=== PATIENT | male | born 1985 | race Caucasian/White ===

== ENCOUNTER 2019-06-22 12:35 | Emergency (ER) | payer MEDICAID ==
[~2019-06-22] VITALS: Ht 170.2 cm; Wt 78.0 kg
[2019-06-22] MEDS ORDERED: Methocarbamol 500mg tab ORAL ONE (13:00)
--- NOTE | 2019-06-22 13:09 | Emergency Room Report ---
History of Present Illness General Chief Complaint: Back Pain-No Injury Source: Patient Present Illness HPI 34 YO male presents to the ED C/o 02/09 in severity left posterior shoulder pain as well as lower back pain. pt. reports this is a chronic issue since having ankle fusion surgery in 2006 he compensates and has had pain ever since in several other areas of his body. Denies trauma or fall. He reports no changes in his chronic pain symptoms. He reports last PMD visit was several years ago. He does not currently have a PMD. Denies numbness tingling or loss of sensation or gross motor movements of the extremities, incontinence of bowel or bladder. Denies CP, Palpitations, LOC, AMS, dizziness, Changes in Vision, weakness or a sudden severe headache. Pt. also reports persistent bunion of the feet bilaterally. Allergies: Coded Allergies: No Known Allergies (Unverified , 06/22/19) Patient History Past Medical History: see triage record Past Surgical History: none Pertinent Family History: none Immunizations: UTD Reviewed Nursing Documentation: PMH: Agreed; PSxH: Agreed Nursing Documentation-PMH Past Medical History: No Stated History Review of Systems All Other Systems: negative except mentioned in HPI Physical Exam Vital Signs Date Time Temp Pulse Resp B/P (MAP) Pulse Ox O2 Delivery O2 Flow Rate FiO2 06/22/19 12:43 98.4 85 17 122/73 (89) 99 Room Air Sp02 EP Interpretation: reviewed, normal General Appearance: no apparent distress, alert, GCS 15, non-toxic Head: normocephalic, atraumatic Eyes: bilateral eye normal inspection, bilateral eye PERRL ENT: hearing grossly normal, normal voice Neck: full range of motion, no bony tend - no midline tenderness, tender lateral - left lateral - trapezius Respiratory: chest non-tender, lungs clear, normal breath sounds, speaking full sentences Cardiovascular #1: regular rate, rhythm, no edema, normal capillary refill Cardiovascular #2: 2+ dorsalis pedis (R), 2+ dorsalis pedis (L) Musculoskeletal: normal range of motion, non-tender, other - compensated gait with use of cane. TTP to the lumbar paraspinal musculature and the Left trapezius muscles. No midline spinous process ttp. No palpable step-offs or obvious deformities of the cervical, lumbar, or sacral spine. Neurologic: alert, motor strength/tone normal, oriented x3, sensory intact, responsive, speech normal Psychiatric: judgement/insight normal Skin: normal color, other - chronic bunions of the bilateral feet. no open wounds, no erythema or warmth. There is healed surgical scar to the medial left ankle with evidence of previous skin graft, no signs of infection. Lymphatic: no adenopathy Medical Decision Making PA Attestation Dr. Johnson is my supervising Physician whom patient management has been discussed with. Diagnostic Impression: Primary Impression: Shoulder pain, left Qualified Codes: M25.512 - Pain in left shoulder Additional Impressions: Back pain Qualified Codes: M54.42 - Lumbago with sciatica, left side; G89.29 - Other chronic pain Pain in left ankle Qualified Codes: M25.572 - Pain in left ankle and joints of left foot Bunion of left foot ER Course 34 YO male presents to the ED C/o 02/09 in severity left posterior shoulder pain as well as lower back pain. pt. reports this is a chronic issue since having ankle fusion surgery in 2006 he compensates and has had pain ever since in several other areas of his body. Denies trauma or fall. He reports no changes in his chronic pain symptoms. He reports last PMD visit was several years ago. He does not currently have a PMD. Denies numbness tingling or loss of sensation or gross motor movements of the extremities, incontinence of bowel or bladder. Denies CP, Palpitations, LOC, AMS, dizziness, Changes in Vision, weakness or a sudden severe headache. Ddx considered but are not limited to Fracture, dislocation, contusion, Sprain/ Strain/Spasm, overuse syndrome, epidural abscess, neoplasm, sciatica, or tendonitis just to name a few. Vital signs: are WNL, pt. is afebrile H&PE are most consistent with musculoskeletal injury. No focal neurological deficit. FROM. ambulatory. No cauda equina symptoms. ORDERS: - None, Dx. is clinical. no Emergent need for imaging. ED INTERVENTIONS: - Lidoderm TP -Robaxin PO -I do not identify an emergent condition at this time. With current presentation , pt. is stable for close outpatient follow up and conservative treatment. D/ w pt. to return promptly to ED with worsening or new symptoms.- Pt. verbalizes' understanding and agreement with proposed treatment plan.proposed treatment plan. DISCHARGE: At this time pt. is stable for d/c to home. Will provide printed patient care instructions, and any necessary prescriptions. Care plan and follow up instructions have been discussed with the patient prior to discharge. Last Vital Signs Date Time Temp Pulse Resp B/P (MAP) Pulse Ox O2 Delivery O2 Flow Rate FiO2 06/22/19 12:43 98.4 85 17 122/73 (89) 99 Room Air Status: improved Disposition: HOME, SELF-CARE Condition: Stable Scripts Naproxen* (NAPROXEN*) 500 Mg Tablet.dr 500 MG ORAL TWICE A DAY for 10 Days, #20 TAB Prov: Yessenia Ward 06/22/19 Methocarbamol* (ROBAXIN-750*) 750 Mg Tablet 750 MG PO QID, #28 TAB 0 Refills Prov: Yessenia Ward 06/22/19 Referrals: [facility] Patient Instructions: Back Pain, Adult, Bunion (Hallux Valgus), Sciatica Additional Instructions: Take medications as directed. Do not drink alcohol, drive, or operate heavy machinery while taking Robaxin ( Muscle Relaxers) as this may cause drowsiness. Follow up with a Primary Care Provider in 3-5 days, even if your symptoms have resolved. --Please review list of primary care clinics, if you do not already have a primary care provider Recommend the following specialty evaluations: PODIATRY and FAMILY DEVELOPMENT SPECIALIST Return sooner to ED if new symptoms occur, or current symptoms become worse. - Please note that this Emergency Department Report was dictated using [employer] driller technology software, occasionally this can lead to erroneous entry secondary to interpretation by the dictation equipment. Yessenia Ward Jun 22, 2019 13:09
[2019-06-22] MEDS ORDERED: NAPROXEN500 M1 ORAL (13:10)
[2019-06-22] MEDS ORDERED: ROBAXIN-750750 MG PO (13:10)
--- NOTE | 2019-06-22 13:45 | NUR ---
ER DISCHARGE NOTE:food and bus card provided Patient is cleared to be discharged per ERMD, pt is aox4, on room air, with stable vital signs. pt was given dc, homeless d/c and prescription instructions, pt was able to verbalize understanding, pt is able to ambulate with steady gait. pt took all belongings.
[2019-06-22 15:11] VITALS: BP 122/73
== END 2019-06-22 13:50 | disposition home or self-care (01) ==
LOC: EMR 13:11
DX: G89.29 Other chronic pain (principal); M25.512 Pain in left shoulder; M54.42 Lumbago with sciatica, left side; M25.572 Pain in left ankle and joints of left foot; M21.612 Bunion of left foot; Z98.890 Other specified postprocedural states
CPT/HCPCS: 99282

== ENCOUNTER 2019-06-23 11:35 | Emergency (ER) | payer MEDICAID ==
[~2019-06-23] VITALS: Ht 170.2 cm; Wt 78.0 kg
[~2019-06-23 11:35] MED LIST: NAPROXEN500 M1 ORAL; ROBAXIN-750750 MG PO
[2019-06-23 11:40] VITALS: BP 112/74
[2019-06-23] MEDS ORDERED: Bacitracin Oint UD TOPIC ONE (12:00)
[2019-06-23 12:10] VITALS: BP 112/74
--- NOTE | 2019-06-24 07:53 | Emergency Room Report ---
History of Present Illness General Chief Complaint: Pain Source: Patient Present Illness HPI 34-year-old male presents to ED for evaluation. Complaining of blisters to his feet. States he has been walking all day. Also notes a pain and swelling to the lateral aspect of his left foot. Is been there for years. States that he broke that ankle many years ago and had surgery. Pain is dull, 5 out of 10, nonradiating. Is able to walk. No other aggravating relieving factors. Denies any other associated symptoms Allergies: Coded Allergies: No Known Allergies (Unverified , 06/22/19) Patient History Past Medical History: none Past Surgical History: none Pertinent Family History: none Social History: Denies: smoking, alcohol use, drug use Immunizations: UTD Reviewed Nursing Documentation: PMH: Agreed; PSxH: Agreed Nursing Documentation-PMH Past Medical History: No Stated History Review of Systems All Other Systems: negative except mentioned in HPI Physical Exam Vital Signs Date Time Temp Pulse Resp B/P (MAP) Pulse Ox O2 Delivery O2 Flow Rate FiO2 06/23/19 11:37 98.1 76 17 112/74 (87) 99 Room Air Sp02 EP Interpretation: reviewed, normal General Appearance: no apparent distress, alert, GCS 15, non-toxic Head: normocephalic Eyes: bilateral eye normal inspection, bilateral eye PERRL ENT: normal ENT inspection Neck: normal inspection Respiratory: normal inspection Cardiovascular #1: normal inspection Gastrointestinal: normal inspection Rectal: deferred Genitourinary: no CVA tenderness Musculoskeletal: other - bunion L foot Neurologic: alert, motor strength/tone normal, oriented x3, sensory intact, responsive, speech normal Psychiatric: judgement/insight normal, memory normal, mood/affect normal, no suicidal/homicidal ideation Skin: other - blisters to soles of bilateral feet Lymphatic: normal inspection Medical Decision Making Diagnostic Impression: Primary Impression: Bunion Additional Impressions: Friction blisters of sole of left foot Qualified Codes: S90.822A - Blister (nonthermal), left foot, initial encounter Friction blisters of sole of right foot Qualified Codes: S90.821A - Blister (nonthermal), right foot, initial encounter ER Course Hospital Course 34-year-old Ellen presents to ED complaining of left foot pain, bilateral foot blisters Differential diagnoses include: Fracture, dislocation, sprain, contusion, bursitis Clinical course Patient placed on stretcher. After initial history, physical exam reveals an male in no acute distress. On exam there are blisters to the soles of both feet. Nonerythematous. No discharge or fluctuance. There is a bunion to the left small toe. Full range of motion noted. No induration or erythema. Bacitracin and dressings applied. Patient given new socks. Patient homeless checklist completed. I discussed findings with patient. Patient given Ortho referral on recent visit however patient states they are not answering his calls. I will provide him with additional referrals. I also recommend follow-up with [facility]. Safe for discharge for close outpatient follow-up Diagnosis - bunion, friction blisters of sole of left and right foot stable and discharged to home. Followup with PMD/ortho. Return to ED if symptoms recur or worsen Last Vital Signs Date Time Temp Pulse Resp B/P (MAP) Pulse Ox O2 Delivery O2 Flow Rate FiO2 06/23/19 11:37 98.1 76 17 112/74 (87) 99 Room Air Status: improved Disposition: HOME, SELF-CARE Condition: Stable Referrals: [facility] Patient Instructions: Bunion (Hallux Valgus), Blisters Aren Seals MD Jun 24, 2019 07:53
== END 2019-06-23 12:10 | disposition home or self-care (01) ==
LOC: EMR 12:02
DX: M21.612 Bunion of left foot (principal); S90.822A Blister (nonthermal), left foot, initial encounter; S90.821A Blister (nonthermal), right foot, initial encounter; X58.XXXA Exposure to other specified factors, initial encounter; Y92.9 Unspecified place or not applicable
CPT/HCPCS: 99282

== ENCOUNTER 2019-07-02 15:01 | Emergency (ER) | payer MEDICAID ==
[~2019-07-02] VITALS: Ht 175.3 cm; Wt 81.6 kg
[2019-07-02 15:03] VITALS: BP 140/70
--- NOTE | 2019-07-02 15:07 | Emergency Room Report ---
History of Present Illness General Chief Complaint: Cough, shortness of breath Source: Patient Present Illness HPI 34-year-old male presents with cough, congestion, shortness of breath that started today, no aggravating relieving factors severity is mild, constant patient presents for evaluation via EMS patient reports he does smoke and he states that he when his tonsils get inflamed he gets like this Allergies: Coded Allergies: No Known Allergies (Unverified , 06/22/19) Patient History Past Medical History: see triage record Social History: Reports: smoking Reviewed Nursing Documentation: PMH: Agreed; PSxH: Agreed Review of Systems All Other Systems: negative except mentioned in HPI Physical Exam Sp02 EP Interpretation: reviewed, normal General Appearance: well appearing, no apparent distress, alert Head: normocephalic, atraumatic Eyes: bilateral eye PERRL, bilateral eye EOMI ENT: uvula midline, moist mucus membranes, nasal congestion Neck: supple, thyroid normal, supple/symm/no masses Respiratory: lungs clear, no respiratory distress, no retraction, no accessory muscle use Cardiovascular #1: normal peripheral pulses, regular rate, rhythm, no edema, no gallop, no murmur Gastrointestinal: non tender, soft, no guarding, no rebound Musculoskeletal: normal inspection Neurologic: alert, oriented x3 Psychiatric: mood/affect normal Skin: no rash, warm/dry Medical Decision Making Diagnostic Impression: Primary Impression: Cough Additional Impression: Upper respiratory infection Qualified Codes: J06.9 - Acute upper respiratory infection, unspecified ER Course 34-year-old male presents with shortness of breath cough, congestion most likely a viral URI exacerbating his chronic COPD Patient feels better with steroids, breathing treatments X-ray negative counseled patient Disposition home with return precautions follow-up with PCP patient is now eating comfortably in bed Chest X-Ray Diagnostic Results Chest X-Ray Diagnostic Results : Chest X-Ray Ordered: Yes # of Views/Limited/Complete: 1 View Indication: Shortness of Breath EP Interpretation: Yes Interpretation: no consolidation, no effusion, no pneumothorax, no acute cardiopulmonary disease Impression: No acute disease Electronically Signed by: Aguila Hayes MD Disposition: HOME, SELF-CARE Condition: Stable Scripts Prednisone* (PREDNISONE*) 50 Mg Tablet 50 MG ORAL DAILY, #4 TAB 0 Refills Prov: Aguila Hayes MD 07/02/19 Albuterol Sulfate* (ALBUTEROL SULFATE MDI*) 8.5 Gm Hfa.aer.ad 2 PUFF INH Q4H PRN for cough/wheezing, #1 EA 0 Refills Prov: Aguila Hayes MD 07/02/19 Referrals: [facility] [place] [facility] Patient Instructions: Upper Respiratory Infection, Adult, [id number] Additional Instructions: The patient was provided with discharge instructions, notified to follow-up with a primary care doctor and or specialist in the next 24-48 hours, and to return to the ED if they have worsening of their symptoms. Please note that this report is being documented using DRAGON technology. This can lead to erroneous entry secondary to incorrect interpretation by the dictating instrument. Aguila Hayes MD Jul 02, 2019 15:07
--- NOTE | 2019-07-02 15:13 | NUR ---
ED Nurse Note: Pt brought in by RA 61 due to coughing and colds since last night. Pt states he felt chills and night sweats. AAO x,4 ambulatory with expiratory wheezing. Speaks in full sentences.
[2019-07-02] MEDS ORDERED: Ipratropium 0.02% Inh Soln 2.5ml UD HHN ONE (15:15)
[2019-07-02] MEDS ORDERED: Albuterol ud Inhalation HHN ONE (15:15)
--- NOTE | 2019-07-02 15:18 | NUR ---
ED Nurse Note: RT AT THE BED SIDE FOR BREATHING TREATMENT.
--- NOTE | 2019-07-02 15:20 | NUR ---
ED Nurse Note: vehicle monitor technician at the bed side for CXR.
--- NOTE | 2019-07-02 15:30 | NUR ---
ED Nurse Note: Pt reports posterior neck pain and Dr Hayes was notified. Waiting for orders.
--- NOTE | 2019-07-02 15:35 | NUR ---
ED Nurse Note: [place] and water provided to patient.
[2019-07-02] MEDS ORDERED: ALBUTEROL SULF8.5 GM INH (15:36)
[2019-07-02] MEDS ORDERED: PREDNISONE50 MG ORAL (15:36)
[2019-07-02 15:47] VITALS: BP 135/74
--- NOTE | 2019-07-02 15:47 | NUR ---
ER DISCHARGE NOTE: Patient is cleared to be discharged per ERMD, pt is aox4, on room air, with stable vital signs. pt was given dc, home jail/resource referrals and prescription instructions, pt was able to verbalize understanding, pt id band removed without complications. pt is able to ambulate with steady gait. pt took all belongings.
--- NOTE | 2019-07-03 11:08 | Diagnostic Imaging Report ---
Indication: Dyspnea Comparison: None A single view chest radiograph was obtained. Findings: Cardiomediastinal appearance is within normal limits for age. The lungs are clear. Pulmonary vascularity is appropriate. The diaphragmatic contour is smooth and costophrenic angles are sharp. No pleural effusions are identified. The bones are unremarkable. Impression: No acute findings
== END 2019-07-02 15:47 | disposition home or self-care (01) ==
LOC: EDUNIT# 15:01 → EDBD 15:01 → EMR 15:20
DX: J06.9 Acute upper respiratory infection, unspecified (principal); R05 Cough; F17.200 Nicotine dependence, unspecified, uncomplicated
CPT/HCPCS: 71045; J8540; Z7502; 99284

== ENCOUNTER 2019-07-28 10:13 | Emergency (ER) | payer MEDICAID ==
[~2019-07-28] VITALS: Ht 170.2 cm; Wt 77.1 kg
[~2019-07-28 10:13] MED LIST changes: +ALBUTEROL SULF8.5 GM INH; +PREDNISONE50 MG ORAL
[2019-07-28 10:23] VITALS: BP 131/65
--- NOTE | 2019-07-28 10:24 | NUR ---
ED Nurse Note: a/ox4. reports having itchiness all over the body with back pain x couple of days. Breathing normal/even/unlabored. skin warm/dry/intact. NAD noted.
--- NOTE | 2019-07-28 11:57 | Emergency Room Report ---
History of Present Illness General Chief Complaint: Pain Source: Patient Present Illness HPI This patient states that he has been itching all over his body. He states he did some alcohol all over his body and then put lotion on. He states he continues to have itching. He cannot find any insects/bugs or anything in his clothing. He states that he cleaned all of his clothing. He continues to have twitching. He has no other complaints. He denies fever chills. He denies nausea or vomiting. He denies chest pain or shortness of breath. He denies abdominal pain. He denies cough or congestion. He denies fever or chills. He has no other complaints. Allergies: Coded Allergies: No Known Allergies (Unverified , 07/28/19) COVID-19 Screening Contact w/high risk pt: No Recent Travel to affected area: No Experienced COVID-19 symptoms?: No Patient History Past Medical History: none Social History: Reports: smoking Reviewed Nursing Documentation: PMH: Agreed; PSxH: Agreed Nursing Documentation-PMH Past Medical History: No Stated History Review of Systems All Other Systems: negative except mentioned in HPI Physical Exam Vital Signs Date Time Temp Pulse Resp B/P (MAP) Pulse Ox O2 Delivery O2 Flow Rate FiO2 07/28/19 10:21 98.2 99 18 131/65 (87) 96 Room Air Sp02 EP Interpretation: reviewed, normal General Appearance: no apparent distress, alert, GCS 15, non-toxic Head: normocephalic, atraumatic Eyes: bilateral eye normal inspection ENT: hearing grossly normal, normal pharynx, no angioedema, normal voice Neck: normal inspection, full range of motion Respiratory: no respiratory distress, no retraction, no accessory muscle use, speaking full sentences Rectal: deferred Musculoskeletal: back normal, normal range of motion, gait/station normal, non- tender Neurologic: alert, motor strength/tone normal, oriented x3, sensory intact, responsive, speech normal Psychiatric: judgement/insight normal, memory normal, mood/affect normal, no suicidal/homicidal ideation Skin: no rash, normal color Medical Decision Making Diagnostic Impression: Primary Impression: Scabies ER Course Scabies. Overall he is well-appearing. He has no rash in the skin is normal color. I do not suspect hyperbilirubinemia causing this. I do not feel that this patient needs any further evaluation in the emergency department. The patient was given a local clinic resources. No emergency medical condition is identified. The patient was given permethrin cream to apply to himself with instructions. He is given return precautions and follow-up instructions. Last Vital Signs Date Time Temp Pulse Resp B/P (MAP) Pulse Ox O2 Delivery O2 Flow Rate FiO2 07/28/19 10:23 98.2 98 18 131/65 96 Room Air Status: improved Disposition: HOME, SELF-CARE Condition: Improved Referrals: NOT CHOSEN HERRERA/,REFERRING (PCP) Linnette Fam DO Jul 28, 2019 11:56
[2019-07-28 12:14] VITALS: BP 128/72
--- NOTE | 2019-07-28 12:14 | NUR ---
ER DISCHARGE NOTE: Patient is cleared to be discharged per ERMD, pt is aox4, on room air, with stable vital signs. pt was given dc and prescription instructions, pt was able to verbalize understanding, pt id band removed without complications. pt is able to ambulate with steady gait. pt took all belongings.
== END 2019-07-28 12:14 | disposition home or self-care (01) ==
LOC: EMR 10:54
DX: B86 Scabies (principal); F17.200 Nicotine dependence, unspecified, uncomplicated
CPT/HCPCS: 99282

== ENCOUNTER 2019-11-10 08:01 | Emergency (ER) | payer MEDICAID ==
[~2019-11-10] VITALS: Ht 170.2 cm; Wt 77.1 kg
--- NOTE | 2019-11-10 08:09 | NUR ---
ED Nurse Note: Pt ambulated to ed c/o bilateral blisters on bottom of foot. pt also states that he has been itching and thinks he has scabies or lice.
[2019-11-10 08:14] VITALS: BP 132/79
[2019-11-10] MEDS ORDERED: PERMETHRIN60 GM TOPIC (08:31)
[2019-11-10] MEDS ORDERED: [UNRECOGNIZED DRUG - SUPPLY] MC (08:31)
[2019-11-10] MEDS ORDERED: LICE TREATMENT59 ML TP (08:31)
[2019-11-10] MEDS ORDERED: BACITRACIN ZIN1 EACH TOPIC (08:31)
--- NOTE | 2019-11-10 08:39 | Emergency Room Report ---
History of Present Illness General Chief Complaint: Skin Rash/Abscess Source: Patient Present Illness HPI Disclaimer: Please note that this report is being documented using DRAGON technology. This can lead to erroneous entry secondary to incorrect interpretation by the dictating instrument. HPI: 34-year-old male presents for evaluation of scalp and skin itching as well as blisters on his feet. Patient is homeless, walks a lot and recently got new boots that are online. He states they have been rubbing his feet and causing him to have blisters which recently popped. He does not have many pairs of socks and states the padding is very poor. He denies surrounding swelling, bleeding, purulent drainage. Denies fever or chills. He also reports itching over the lower extremities the hands the forearms and in the scalp. He believes he may have been exposed to scabies and head lice. He does not stay at shelters and prefers to sleep on the street stating he does not like being in shelters with other people. Otherwise denies any fever, chills, sore throat , cough, chest pain, shortness of breath, difficulty breathing, vomiting or diarrhea. PMH: Reviewed PSH: Left ankle fixation Allergies: Denied Social Hx: Denied Allergies: Coded Allergies: No Known Allergies (Unverified , 07/28/19) COVID-19 Screening Contact w/high risk pt: No Recent Travel to affected area: No Experienced COVID-19 symptoms?: No COVID-19 Testing performed HUMAN RESOURCE MANAGER: No Nursing Documentation-PMH Past Medical History: No History, Except For History Of Psychiatric Problem: Yes - depression Review of Systems All Other Systems: negative except mentioned in HPI Physical Exam Vital Signs Date Time Temp Pulse Resp B/P (MAP) Pulse Ox O2 Delivery O2 Flow Rate FiO2 11/10/19 08:10 98.2 92 17 129/75 (93) 97 Room Air General: Awake and alert, no acute distress HEENT: NC/AT. EOMI. Resp: Normal work of breathing Skin: Intact. Minor excoriations over the hands and forearms bilaterally as well as in the scalp. No visible louse. There is a superficial and ruptured blister over the base of the fifth metatarsal on the left foot and a healing blister over the base of the fifth toe on the left foot as well. Healing previously ruptured blisters on the right foot as well. No surrounding purulent drainage, no erythema, no edema. Lower extremities are well perfused. MSK: Normal tone and bulk. Moving all extremities. No obvious deformity. Neuro: Awake and alert. Mentating appropriately Medical Decision Making Homeless Attestation Patient has been medically screened and is stable for outpatient follow up Diagnostic Impression: Primary Impression: Scabies Additional Impression: Blister of foot ER Course 34-year-old male presents for evaluation of foot blistering and concern for scabies/lice infestation. The blisters on the patient's feet are likely secondary to friction from ill fitting and online boots. Will provide additional socks applied bacitracin, provide padding bandage. Also discharged with additional topical antibiotics, bandages and prescribed moleskin as well for padding. Will provide additional socks from our stores in the ED. Regarding the patient's itchiness and excoriations on the scalp and arms. Given his high risk exposures we will prescribe permethrin shampoo and cream. He has used them in the past and reported successful treatment. No evidence of cellulitis, abscess or other deep space infection. No evidence of Mcclelland- Zeus's, TEN or other severe skin conditions. Do not believe he requires emergent labs or imaging at this time. Patient stable for outpatient follow- up. I referred him to clinics in the area for reevaluation and instructed and he can return to the ED with new or worsening symptoms. He understands and agrees with this treatment plan was discharged. Last Vital Signs Date Time Temp Pulse Resp B/P (MAP) Pulse Ox O2 Delivery O2 Flow Rate FiO2 11/10/19 08:14 97.2 76 19 132/79 100 Room Air Disposition: HOME, SELF-CARE Condition: Stable Scripts Footcare,Miscellaneous (MOLESKIN PLUS) 1 Each Each EACH , #20 Prov: Fabio Pineda MD 11/10/19 Bacitracin Zinc* (BACITRACIN ZINC*) 1 Each Packet 1 APPLIC TOPIC THREE TIMES A DAY for 5 Days, #15 PACKET Prov: Fabio Pineda MD 11/10/19 Permethrin (LICE TREATMENT) 59 Ml Liquid 59 ML TP ONCE for 3 Days, #118 ML Prov: Fabio Pineda MD 11/10/19 Permethrin* (ELIMITE*) 60 Gm Cream..g. 1 APPLIC TOPIC ONCE, #1 TUBE 0 Refills Apply cream from head to toe; leave on for 8-14 hours before washing off with water Prov: Fabio Pineda MD 11/10/19 Referrals: NOT CHOSEN HERRERA/,REFERRING (PCP) [facility] Patient Instructions: Lice, Adult, Pruritus, Blisters Additional Instructions: Apply the topical antibiotic ointment to the blisters and continue to pad them and wear thick socks as best as you are able. Applied the permethrin cream to the body and a shampoo to the head to treat scabies and lice as instructed. Return to the emergency department any new or worsening symptoms. Wash hair with non-conditioned shampoo Apply Permethrin for 10 min and rinse Repeat on day 9 Fabio Pineda MD Nov 10, 2019 08:39
[2019-11-10 08:42] VITALS: BP 132/79
--- NOTE | 2019-11-10 08:42 | NUR ---
ER DISCHARGE NOTE: Patient is cleared to be discharged per ERMD, pt is aox4, on room air, with stable vital signs. pt was given dc and prescription instructions, pt was able to verbalize understanding, pt id band removed. pt is able to ambulate with steady gait. pt took all belongings.
[2019-11-10] MEDS ORDERED: Bacitracin Oint 15gm Tube TOPIC SCH (09:00)
== END 2019-11-10 08:42 | disposition home or self-care (01) ==
LOC: EMR 08:26
DX: B86 Scabies (principal); S90.822A Blister (nonthermal), left foot, initial encounter; S90.821A Blister (nonthermal), right foot, initial encounter; X58.XXXA Exposure to other specified factors, initial encounter; Y92.9 Unspecified place or not applicable; Z59.0 Homelessness; F32.9 Major depressive disorder, single episode, unspecified
CPT/HCPCS: 99282